=== PATIENT | male | born 1960 | race Caucasian/White ===

== ENCOUNTER → 2019-07-02 11:47 | Outpatient (CLI) | payer OTHER, SELFPAY ==
[2019-07-02 12:01] LABS: Bacteria Urine None Seen; RBC Urine None Seen (0-5/HPF)
[2019-07-02 12:46] LABS: Appearance Urine UA CLEAR; Bilirubin Urine UA NEGATIVE (NEGATIVE); Color Urine UA YELLOW; Glucose Urine UA NEGATIVE (Negative); Ketones Urine UA TRACE (NEGATIVE); Leukocyte Esterase Urine UA NEGATIVE (NEGATIVE); Nitrite Urine UA NEGATIVE (Negative); Occult Blood Urine UA NEGATIVE (Negative); Protein Urine UA NEGATIVE (Negative); Urobilinogen Urine UA 0.2 E.U./dL (0.2)
[2019-07-02 12:54] LABS: Add Manual Diff / Slide Review NO; Basophils Absolute Auto 0 /uL (0-100); Basophils Percent Auto 0.4 % (0-2); Eosinophils Absolute Auto 0 /uL (0-450); Eosinophils Percent Auto 0.4 % (2-4); Hematocrit 43.6 % (41-53); Hemoglobin 15.5 g/dL (13.5-17.5); Lymphocytes Absolute Auto 1200 /uL (1100-4500); Lymphocytes Percent Auto 17.1 % (25-40); Mean Corpuscular HGB Conc 35.6 % (30-36); Mean Corpuscular Hemoglobin 31.9 PG (26-34); Mean Corpuscular Volume 89.6 fL (80-100); Monocytes Absolute Auto 500 /uL (0-900); Monocytes Percent Auto 7.4 % (3-14); Neutrophils Absolute Auto 5300 /uL (1500-7000); Neutrophils Percent Auto 74.7 % (50-75); Platelet Count 201 X10^3/uL (150-400); Red Blood Cell Count 4.87 X10^6/uL (4.5-5.9); Red Cell Distribution Width 12.6 % (11.6-14.8); White Blood Cell Count 7.1 X10^3/uL (4.5-11.0)
[2019-07-02 13:01] LABS: Culture Indicated Urine Cult Not Indicated; Squamous Epithelial Cell Urine 0-1 /HPF (0-5/HPF); WBC Urine 0-1/HPF (0-5/HPF)
== END ==
PROVIDERS: PCP Family Medicine; Visit Provider Family Medicine
DX: N45.2 Orchitis (principal)
CPT/HCPCS: 36415; 81001; 85025

== ENCOUNTER → 2019-07-10 12:50 | Outpatient (CLI) | payer OTHER, SELFPAY ==
--- NOTE | 2019-07-10 12:51 | DI.US.S_ITS ---
PROCEDURE: US SCROTUM INDICATIONS: PAIN, EDEMA TECHNIQUE: Real-time scanning was performed of the scrotum and testicles, with image documentation. Color and pulse Doppler interrogation was performed of both testicles. COMPARISON: None. FINDINGS: Right: Testicle is normal in size at 2.5 x 3.7 x 4.7 cm, and homogenous in echotexture. Epididymis is normal in overall size and morphology. No hydrocele or varicoceles. Overlying scrotal skin is normal in thickness. Left: Testicle is normal in size at 2.4 x 3.0 x 4.3 cm, and homogeneous in echotexture. Epididymis is normal in overall size and morphology. There is a slight left-sided hydrocele but no varicoceles. Overlying scrotal skin is normal in thickness. Doppler: Color and pulse Doppler demonstrate normal and symmetric arterial flow in both testicles. IMPRESSION: Minimal left-sided hydrocele, no evidence of inflammation involving the testis or epididymis. No varicocele or testicular mass is found. Dictated by: Juno Swanson M.D. on 07/10/2019 at 14:02 Approved by: Juno Swanson M.D. on 07/10/2019 at 14:03
== END ==
PROVIDERS: PCP Family Medicine; Visit Provider Family Medicine
DX: N45.2 Orchitis (principal); N50.89 Other specified disorders of the male genital organs; R10.2 Pelvic and perineal pain
CPT/HCPCS: 76870